=== PATIENT | male | born 1970 | race Caucasian/White ===

== ENCOUNTER 2021-06-02 18:46 | Emergency (ER) | payer SELFPAY ==
[~2021-06-02] VITALS: Ht 177.8 cm; Wt 78.0 kg
--- NOTE | 2021-06-02 19:07 | NUR ---
Pt cut off tip of left middle finger with fishing magnets, bleeding has stopped, noticable missing fingernail and tip of finger, visable tissue, pt stable and speaking in full sentences. [facility]
[2021-06-02] MEDS ORDERED: LIDOCAINE-MPF 1%, 5ML INFIL ONE (19:30)
[2021-06-02] MEDS ORDERED: DIPH,PERTUSS(ACELL),TET VAC/PF 0.5 ML IM-VACC ONE ×2 (19:30→21:14)
[2021-06-02] MEDS ORDERED: LIDOCAINE-MPF 1%, 5ML ONE (19:33)
[2021-06-02 20:46] VITALS: BP 119/66
[2021-06-02] MEDS ORDERED: NEOSPORIN OINT. PKT 1 PACKET ONE (21:20)
== END 2021-06-02 19:58 | disposition home or self-care (01) ==
LOC: ED 19:52
DX: S61.313A Laceration without foreign body of left middle finger with damage to nail, initial encounter (principal); Z89.022 Acquired absence of left finger(s); X58.XXXA Exposure to other specified factors, initial encounter; Y93.89 Activity, other specified; Y92.828 Other wilderness area as the place of occurrence of the external cause; Y99.8 Other external cause status
CPT/HCPCS: 11760; 12041; 90471; 90715